=== PATIENT | male | born 1985 | race Caucasian/White ===

== ENCOUNTER 2022-02-17 08:27 | Emergency (ER) | payer BC ==
[~2022-02-17] VITALS: Ht 170.2 cm; Wt 75.0 kg
[2022-02-17] MEDS ORDERED: LIDOcaine Viscous 15ml cup MM ONE (09:05)
[2022-02-17] MEDS ORDERED: mag hydrox/Alum hydrox/simeth 30ml oral suspension PO ONE (09:05)
[2022-02-17] MEDS ORDERED: sucralfate 1 gm tablet PO ONE (09:05)
[2022-02-17 09:12] LABS: BASOPHILS % (AUTO) 0.5 % (0-1); HEMATOCRIT 40.8 % (42.0-52.0); HEMOGLOBIN 13.9 g/dl (14.0-17.9); LYMPHOCYTES # (AUTO) 1.2 X10'3 (1.1-4.8); LYMPHOCYTES % (AUTO) 27.5 % (21-51); MEAN CORPUSCULAR HEMOGLOBIN 30.3 PG (27.0-31.0); MEAN CORPUSCULAR VOLUME 89.1 FL (78-98); MEAN PLATELET VOLUME 9.8 FL (7.4-10.4); MONOCYTES # (AUTO) 0.3 X10'3 (0-0.9); MONOCYTES % (AUTO) 7.7 % (2-12); NEUTROPHILS # (AUTO) 2.7 X10'3 (1.8-7.7); NEUTROPHILS % (AUTO) 63.3 % (42-75); PLATELET COUNT 175 X10'3 (140-440); RED BLOOD COUNT 4.58 X10'6 (4.70-6.10); RED CELL DISTRIBUTION WIDTH 13.4 % (11.5-14.5); WHITE BLOOD COUNT 4.2 X10'3 (4.5-11.0)
[2022-02-17 09:14] LABS: CLARITY,URINE CLEAR (Clear); COLOR,URINE YELLOW (Yellow); GLUCOSE, URINE NEGATIVE (Neg); KETONES,URINE NEGATIVE (Neg); LEUKOCYTE ESTERASE ,URINE NEGATIVE (Neg); NITRITES, URINE NEGATIVE (Neg); OCCULT BLOOD,URINE NEGATIVE (Neg); PROTEIN,URINE NEGATIVE (Neg); UA COLLECTION TYPE CLN CATCH MIDSTREAM; UROBILINOGEN,URINE 0.2 E.U/dL (0.2-1.0)
[2022-02-17 09:23] LABS: ALANINE AMINOTRANSFERASE 132 U/L (12-78); ALBUMIN 3.6 G/DL (3.4-5.0); ALBUMIN/GLOBULIN RATIO 1.1 (1.1-1.5); ALKALINE PHOSPHATASE 79 IU/L (46-116); ANION GAP 7 (8-16); ASPARTATE AMINO TRANSFERASE 114 U/L (10-37); BILIRUBIN,TOTAL 0.2 MG/DL (0.1-1.0); BLOOD UREA NITROGEN 9 MG/DL (7-18); BUN/CREATININE RATIO 10.6 (5.4-32.0); CALCIUM 8.8 MG/DL (8.5-10.1); CHLORIDE 107 MMOL/L (99-107); CREATININE 0.85 MG/DL (0.60-1.10); GLUCOSE 99 MG/DL (70-104); LIPASE 54 U/L (73-393); SODIUM 141 MMOL/L (135-145); TOTAL CARBON DIOXIDE 27.5 MMOL/L (24-32); TOTAL PROTEIN 6.9 G/DL (6.4-8.2); eGFR > 90 ML/MIN
[2022-02-17 09:45] VITALS: BP 107/74
[2022-02-17] MEDS ORDERED: PANT-47 PO (10:04)
[2022-02-17] MEDS ORDERED: SUCR1TAB34 PO (10:04)
[2022-02-17] MEDS ORDERED: famotidine 10mg tablet PO STA (10:09)
--- NOTE | 2022-02-17 10:10 | NUR ---
PATIENT C/O EXACERBATION OF STERNAL PAIN AND PROVIDER NOTIFIED. MAI AC ORDERED FOR PATIENT, BUT HE REFUSED MED STATING, "I KNOW THIS IS NOT REFLUX AND THERE IS SOMETHING WRONG WITH ME". PATIENT DEPARTED FROM ER WITHOUT DC PAPERWORK.
[2022-02-17] MEDS ORDERED: famotidine 20mg tablet PO STA (10:14)
== END 2022-02-17 10:24 | disposition home or self-care (01) ==
LOC: ER 08:27
DX: R10.13 Epigastric pain (principal); F17.200 Nicotine dependence, unspecified, uncomplicated; Z79.899 Other long term (current) drug therapy
CPT/HCPCS: 36415; 71045; 80053; 81003; 83690; 85025; 99284